=== PATIENT | female | born 1970 | race Two or more races ===

== ENCOUNTER 2022-05-04 02:01 | Emergency (ER) | payer MEDICAID, OTHER ==
[~2022-05-04] VITALS: Ht 165.1 cm; Wt 76.8 kg
[2022-05-04 06:05] VITALS: BP 130/76
[2022-05-04] MEDS ORDERED: ACETAMINOPHEN 500 MG TAB PO ONE (06:45)
[2022-05-04] MEDS ORDERED: METH500T22 PO (07:16)
[2022-05-04] MEDS ORDERED: IBUP800T27 PO (07:16)
== END 2022-05-04 07:32 | disposition home or self-care (01) ==
LOC: ER 02:01
DX: S16.1XXA Strain of muscle, fascia and tendon at neck level, initial encounter (principal); S29.012A Strain of muscle and tendon of back wall of thorax, initial encounter; E03.9 Hypothyroidism, unspecified; Z79.1 Long term (current) use of non-steroidal anti-inflammatories (NSAID); Z79.899 Other long term (current) drug therapy; V43.62XA Car passenger injured in collision with other type car in traffic accident, initial encounter; Y93.89 Activity, other specified; Y92.410 Unspecified street and highway as the place of occurrence of the external cause; Y99.8 Other external cause status
CPT/HCPCS: 72040; 72070